=== PATIENT | male | born 1945 | race Caucasian/White ===

== ENCOUNTER 2020-03-16 18:01 | Emergency (ER) | payer OTHER, MEDICARE ==
[~2020-03-16] VITALS: Ht 180.3 cm; Wt 122.5 kg
[2020-03-16] MEDS ORDERED: ATOR20 PO (18:38)
[2020-03-16] MEDS ORDERED: METF500 PO (18:39)
[2020-03-16] MEDS ORDERED: ASPIR 8181 M1 PO (18:39)
[2020-03-16] MEDS ORDERED: LISINOPRIL-HCT1 EACH PO (18:40)
[2020-03-16] MEDS ORDERED: METO25ER PO (18:41)
[2020-03-16] MEDS ORDERED: BASAGLAR K100 UNIT/1 SC (18:42)
[2020-03-16] MEDS ORDERED: NOVOLOG100 UNIT/2 SC (18:44)
[2020-03-16 19:18] LABS: BASOPHILS ABSOLUTE AUTO 0.06 K/mm3 (0.00-0.23); BASOPHILS PERCENT AUTO 0 % (0-2); EOSINOPHILS ABSOLUTE AUTO 0.38 K/mm3 (0.00-0.68); EOSINOPHILS PERCENT AUTO 2 % (0-6); Hematocrit 43.5 % (37.0-53.0); Hemoglobin 13.7 g/dL (13.5-17.5); IMMATURE GRAN ABSOLUTE AUTO 0.07 K/mm3 (0.00-0.10); IMMATURE GRAN PERCENT AUTO 0 % (0-1); LYMPHOCYTES ABSOLUTE AUTO 3.18 K/mm3 (0.84-5.20); LYMPHOCYTES PERCENT AUTO 18 % (21-46); MONOCYTES PERCENT AUTO 9 % (4-13); Mean Corpuscular HGB 29.8 pg (26.0-34.0); Mean Corpuscular HGB Conc 31.5 g/dL (31.5-36.5); Mean Corpuscular Volume 95 fL (80-100); NEUTROPHILS ABSOLUTE AUTO 12.21 K/mm3 (1.96-9.15); NEUTROPHILS PERCENT AUTO 70 % (41-73); Platelet Count 286 K/mm3 (150-400); RDW Coefficient Variation 14.3 % (11.7-14.2); RDW Standard Deviation 49.3 fL (35.1-46.3)
[2020-03-16 19:42] LABS: Albumin, Blood 3.8 g/dL (3.4-5.0); Albumin/Globulin Ratio 0.9 (0.8-1.8); Bilirubin, Total 0.7 mg/dL (0.1-1.0); Bun/Creatinine Ratio 22.7 (12.0-20.0); Calcium, Blood 9.6 mg/dL (8.5-10.1); Creatinine, Blood 1.32 mg/dL (0.60-1.20); Globulin, Blood 4.1 g/dL (2.2-4.0); Total Protein, Blood 7.9 g/dL (6.4-8.2)
[2020-03-16 20:36] LABS: Troponin I <0.015 ng/mL (0.000-0.040)
[2020-03-16] MEDS ORDERED: Roxicodone5 MG PO (23:47)
[2020-03-16] MEDS ORDERED: ONDA4ODT MM (23:47)
[2020-03-17] MEDS ORDERED: NOVOLOG100 UNIT/3 SC ×2 (15:57→15:58)
[2020-03-17] MEDS ORDERED: BASAGLAR K100 UNIT/1 SC (15:59)
[2020-03-17] MEDS ORDERED: METF500C PO (16:00)
[2020-03-17] MEDS ORDERED: Viagra100 MG PO (16:01)
== END 2020-03-17 00:03 | disposition left against medical advice (07) ==
LOC: ER 18:01
PROVIDERS: Emergency Medicine; Physician Assistant
DX: K85.90 Acute pancreatitis without necrosis or infection, unspecified (principal); E11.9 Type 2 diabetes mellitus without complications; I10 Essential (primary) hypertension; E78.5 Hyperlipidemia, unspecified; I25.10 Atherosclerotic heart disease of native coronary artery without angina pectoris; Z87.891 Personal history of nicotine dependence; Z53.20 Procedure and treatment not carried out because of patient's decision for unspecified reasons; Z79.82 Long term (current) use of aspirin; Z79.4 Long term (current) use of insulin; Z88.7 Allergy status to serum and vaccine; Z79.899 Other long term (current) drug therapy
CPT/HCPCS: 36415; 71275; 74174; 76705; 80053; 83605; 83690; 84484; 85025; 93005; 93010; 96360-59; 99284-25; A9270; A9270-GY; J7120; Q9967